=== PATIENT | female | born 1975 | race Caucasian/White ===

== ENCOUNTER 2017-10-11 12:35 | Emergency (ER) | payer BC ==
[2017-10-11] MEDS ORDERED: FAMOTIDINE 20 MG TABLET PO ONE (13:27)
[2017-10-11] MEDS ORDERED: PREDNISONE 20 MG TABLET PO ONE (13:27)
--- NOTE | 2017-10-11 13:31 | ER Document Report ---
ED General - General Chief Complaint: Allergic Reaction Stated Complaint: POSSIBLE ALLERGIC REACTION Time Seen by Provider: 10/11/17 13:18 Notes: 42-year-old female here with complaints of hives itching and swelling ongoing since yesterday evening. The symptoms started approximately 3 hours after using a shampoo she had never used before. She has tried Benadryl for the symptoms including approximately 3.5 hours ago. She does not have any trouble breathing or swallowing. She denies anything else new in her life that may have caused the symptoms. She has no known previous history of allergies. TRAVEL OUTSIDE OF THE [place] IN LAST 30 DAYS: No - Related Data Allergies/Adverse Reactions: No Known Allergies Allergy (Verified 10/11/17 12:38) Past Medical History - Social History Smoking Status: Unknown if Ever Smoked Family History: Reviewed & Not Pertinent Patient has suicidal ideation: No Patient has homicidal ideation: No Renal/ Medical History: Denies: Hx Peritoneal Dialysis Review of Systems - Review of Systems Notes: See history of present illness for pertinent positive review of systems; otherwise all review of systems have been reviewed and are negative Physical Exam - Vital signs Vitals: Temp Pulse Resp BP Pulse Ox 98.8 F 73 18 121/71 100 10/11/17 12:53 10/11/17 12:53 10/11/17 12:53 10/11/17 12:53 10/11/17 12:53 - Notes Notes: PHYSICAL EXAMINATION: GENERAL: Well-appearing and in no acute distress. HEAD: Atraumatic, normocephalic. EYES: Pupils equal round and reactive to light, extraocular movements intact, sclera anicteric, conjunctiva are normal. ENT: nares patent, oropharynx clear without exudates. Moist mucous membranes. There is no uvular or oropharyngeal edema. There is no facial or neck swelling/ edema. NECK: Normal range of motion, supple without lymphadenopathy LUNGS: CTAB and equal. No wheezes rales or rhonchi. There is no stridor HEART: Regular rate and rhythm without murmurs ABDOMEN: Soft, no tenderness. No facial grimacing/wincing upon palpation. No guarding, no rebound. EXTREMITIES: Normal range of motion, no pitting edema. No cyanosis. NEUROLOGICAL: Cranial nerves grossly intact. Normal sensory/motor exams. PSYCH: Normal mood, normal affect. SKIN: Warm, Dry, normal turgor, there is a scattered urticarial rash visualized on the face neck torso and extremities Course - Re-evaluation Re-evalutation: 10/11/17 13:30 MEDICAL DECISION MAKING: Concern for allergic reaction The symptoms have been ongoing for over 16 hours now I have low clinical suspicion for acute emergent pathology i.e. anaphylaxis We will give a dose of prednisone here and prescription for same Instructed her to continue using Benadryl but add Pepcid twice daily Return precautions given otherwise follow-up PCP next day or few Patient understands and agrees to the plan of care - Vital Signs Vital signs: Temp Pulse Resp BP Pulse Ox 98.8 F 73 18 121/71 100 10/11/17 12:53 10/11/17 12:53 10/11/17 12:53 10/11/17 12:53 10/11/17 12:53 Discharge - Discharge Clinical Impression: Hives Condition: Good Disposition: HOME, SELF-CARE Additional Instructions: You were seen in the emergency department at [facility]. Finish the steroids and do not skip any doses. Continue using Benadryl and Pepcid for the itching and swelling. Please followup with your primary physician in the next few days for further management/evaluation. Please return to the emergency department for worsening of symptoms or any symptom that you deem to be concerning or life-threatening. Thank you for allowing us to be part of your care. Prescriptions: Prednisone [Deltasone 20 mg Tablet] 60 mg PO DAILY #12 tablet
[2017-10-11 13:45] VITALS: BP 138/80
== END 2017-10-11 13:40 | disposition home or self-care (01) ==
LOC: ER 12:35
DX: L50.9 Urticaria, unspecified (principal)
CPT/HCPCS: 99283; J7512